=== PATIENT | female | born 1985 | race Caucasian/White ===

== ENCOUNTER 2019-10-03 13:27 | Inpatient (IN) | payer OTHER ==
[~2019-10-03] VITALS: Ht 165.1 cm; Wt 69.4 kg
--- NOTE | 2019-10-03 13:35 | NUR ---
ED Nurse Note: Pt ambulated to ED from out of state ([place] to be seen by Dr. Swartz. Pt is AOx4, calm and cooperative. Pt report she has been diagnosed with ulcerative colitis. Pt denies pain as of now, but more of like "cramping". Placed on bed and gown.
[2019-10-03 13:51] VITALS: BP 130/91
--- NOTE | 2019-10-03 14:21 | Emergency Room Report ---
History of Present Illness General Chief Complaint: General Complaint Source: Patient Present Illness HPI 34-year-old female history of colon resection history of ulcerative colitis, presents with obstructive-like symptoms J pouch, ongoing for the past month patient has not been able to tolerate good PO no aggravating or alleviating factors severity is moderate, intermittent patient presents for evaluation for possible surgical intervention Allergies: Coded Allergies: MESALAMINE (Verified Allergy, Unknown, 10/03/19) MORPHINE (Verified Allergy, Unknown, 10/03/19) COVID-19 Screening Contact w/high risk pt: No Recent Travel to affected area: No Experienced COVID-19 symptoms?: No Patient History Past Medical History: see triage record Last Menstrual Period: a year ago Now: No : 3 Para: 3 Reviewed Nursing Documentation: PMH: Agreed; PSxH: Agreed Nursing Documentation-PMH Past Medical History: No History, Except For Hx Cardiac Problems: No - ulcerative colitis Hx Asthma: Yes Review of Systems All Other Systems: negative except mentioned in HPI Physical Exam Vital Signs Date Time Temp Pulse Resp B/P (MAP) Pulse Ox O2 Delivery O2 Flow Rate FiO2 10/03/19 13:38 98.8 90 18 130/91 (104) 97 Room Air Sp02 EP Interpretation: reviewed, normal General Appearance: well appearing, no apparent distress, alert Head: normocephalic, atraumatic Eyes: bilateral eye PERRL, bilateral eye EOMI ENT: uvula midline, moist mucus membranes Neck: supple, thyroid normal, supple/symm/no masses Respiratory: lungs clear, no respiratory distress, no retraction, no accessory muscle use Cardiovascular #1: normal peripheral pulses, regular rate, rhythm, no edema, no gallop, no murmur Gastrointestinal: non tender, soft, no guarding, no rebound Musculoskeletal: normal inspection Neurologic: alert, oriented x3 Psychiatric: mood/affect normal Skin: no rash, warm/dry Medical Decision Making Diagnostic Impression: Primary Impression: Other complications of intestinal pouch ER Course 34-year-old female presents with obstructive symptoms, patient will be admitted to Dr. Swartz for management of her pouch. Laboratory Tests Test 10/03/19 14:00 White Blood Count 7.7 K/UL (4.8-10.8) Red Blood Count 4.44 M/UL (4.20-5.40) Hemoglobin 13.0 G/DL (12.0-16.0) Hematocrit 38.3 % (37.0-47.0) Mean Corpuscular Volume 86 FL (80-99) Mean Corpuscular Hemoglobin 29.2 PG (27.0-31.0) Mean Corpuscular Hemoglobin Concent 33.8 G/DL (32.0-36.0) Red Cell Distribution Width 11.8 % (11.6-14.8) Platelet Count 361 K/UL (150-450) Mean Platelet Volume 5.2 FL (6.5-10.1) L Neutrophils (%) (Auto) 60.7 % (45.0-75.0) Lymphocytes (%) (Auto) 25.6 % (20.0-45.0) Monocytes (%) (Auto) 11.2 % (1.0-10.0) H Eosinophils (%) (Auto) 0.7 % (0.0-3.0) Basophils (%) (Auto) 1.8 % (0.0-2.0) Urine Color Pale yellow Urine Appearance Clear Urine pH 5 (4.5-8.0) Urine Specific [place] 1.015 (1.005-1.035) Urine Protein Negative (NEGATIVE) Urine Glucose (UA) Negative (NEGATIVE) Urine Ketones Negative (NEGATIVE) Urine Blood 1+ (NEGATIVE) H Urine Nitrite Negative (NEGATIVE) Urine Bilirubin Negative (NEGATIVE) Urine Urobilinogen Normal MG/DL (0.0-1.0) Urine Leukocyte Esterase Negative (NEGATIVE) Urine RBC 0-2 /HPF (0 - 2) Urine WBC 0 /HPF (0 - 2) Urine Squamous Epithelial Cells Few /LPF (NONE/OCC) Urine Bacteria Occasional /HPF (NONE) Urine HCG, Qualitative Negative (NEGATIVE) Sodium Level 143 MMOL/L (136-145) Potassium Level 4.2 MMOL/L (3.5-5.1) Chloride Level 106 MMOL/L (98-107) Carbon Dioxide Level 28 MMOL/L (21-32) Anion Gap 9 mmol/L (5-15) Blood Urea Nitrogen 9 mg/dL (7-18) Creatinine 0.9 MG/DL (0.55-1.30) Estimated Glomerular Filtration Rate > 60 mL/min (>60) Glucose Level 86 MG/DL (74-106) Calcium Level 9.0 MG/DL (8.5-10.1) Total Bilirubin 0.5 MG/DL (0.2-1.0) Aspartate Amino Transferase (AST) 19 U/L (15-37) Alanine Aminotransferase (ALT) 24 U/L (12-78) Alkaline Phosphatase 32 U/L (46-116) L Total Protein 7.2 G/DL (6.4-8.2) Albumin 4.0 G/DL (3.4-5.0) Globulin 3.2 g/dL Albumin/Globulin Ratio 1.3 (1.0-2.7) Lipase 139 U/L (73-393) Last Vital Signs Date Time Temp Pulse Resp B/P (MAP) Pulse Ox O2 Delivery O2 Flow Rate FiO2 10/03/19 13:51 90 18 Room Air 10/03/19 13:51 98.8 130/91 97 Disposition: ADMITTED INPATIENT Condition: Stable Trevor Judd MD October 03, 2019 14:21
[2019-10-03 14:39] LABS: BASOPHILS % (AUTO) 1.8 % (0.0-2.0); EOSINOPHILS % (AUTO) 0.7 % (0.0-3.0); HEMATOCRIT 38.3 % (37.0-47.0); LYMPHOCYTES % (AUTO) 25.6 % (20.0-45.0); MEAN CORPUSCULAR VOLUME 86 FL (80-99); MONOCYTES % (AUTO) 11.2 % (1.0-10.0); NEUTROPHILS % (AUTO) 60.7 % (45.0-75.0); PLATELET COUNT 361 K/UL (150-450); RED BLOOD COUNT 4.44 M/UL (4.20-5.40); RED CELL DISTRIBUTION WIDTH 11.8 % (11.6-14.8); WHITE BLOOD COUNT 7.7 K/UL (4.8-10.8)
[2019-10-03 14:42] LABS: APPEARANCE,URINE CLEAR; BILIRUBIN, URINE NEGATIVE (NEGATIVE); GLUCOSE, URINE (UA) NEGATIVE (NEGATIVE); NITRITE,URINE NEGATIVE (NEGATIVE); PH,URINE 5 (4.5-8.0); PROTEIN,URINE NEGATIVE (NEGATIVE); UROBILINOGEN,URINE NORMAL MG/DL (0.0-1.0)
[2019-10-03 14:45] LABS: COLOR,URINE PALE YELLOW; KETONES,URINE NEGATIVE (NEGATIVE); LEUKOCYTE ESTERASE ,URINE NEGATIVE (NEGATIVE)
[2019-10-03 14:57] LABS: ANION GAP 9 mmol/L (5-15); BLOOD UREA NITROGEN 9 mg/dL (7-18); CARBON DIOXIDE 28 MMOL/L (21-32); CHLORIDE 106 MMOL/L (98-107); CREATININE 0.9 MG/DL (0.55-1.30); POTASSIUM 4.2 MMOL/L (3.5-5.1); SODIUM 143 MMOL/L (136-145)
--- NOTE | 2019-10-03 14:59 | General Progress Note ---
Progress Note Progress Note H&P dictated. 34 year old female in good health one year post-op creation of a Mcdowell Continent Intestinal [place] continent ileostomy in [place], for a diagnosis of Ulcerative Colitis and prior colectomy with failed ileoanal J pouch. for several months she has been having progressively severe difficulty inserting her drainage catheter to evacuate stool and gas. She has tried an indwelling catheter but it keeps coming out. She has also been having frequent repeated episodes of pouchitis, treated with Cipro, Flagyl, and Xifaxan in the past. She last intubated 12 hours ago. She has not had any incontinence of stool or gas from her stoma. She denies nausea or emesis, but feels bloated Abdomen soft, slight distention, mildly tympanitic. Pfannenstiel incision ( used for all her operations), stoma of the Mcdowell pouch is very low near the pubic tubercle in the RLQ, and has a very small orifice. Imp: Malfunctioning Mcdowell Continent Ileostomy with inability to intubate and functional small bowel obstruction History of Ulcerative Colitis S/P multiple operations including colectomy with ileoanal J pouch in 1999 , and in September 2018 APR, resection of J pouch, creation of Mcdowell continent ileostomy pouch Plan: NPO, IV fluids Insertion of a catheter into Mcdowell pouch now and connect to continuous gravity drainage Mcdowell pouch endoscopy tomorrow Elijah Swartz MD October 03, 2019 14:59
[2019-10-03 15:01] LABS: ALANINE AMINOTRANSFERASE 24 U/L (12-78); ALBUMIN/GLOBULIN RATIO 1.3 (1.0-2.7); ALKALINE PHOSPHATASE 32 U/L (46-116); ASPARTATE AMINO TRANSFERASE 19 U/L (15-37); BILIRUBIN,TOTAL 0.5 MG/DL (0.2-1.0)
--- NOTE | 2019-10-03 15:21 | NUR ---
ED Nurse Note: report given to AMBROSIO Lee
--- NOTE | 2019-10-03 15:40 | NUR ---
TRANSFER TO FLOOR: Patient transferred to med surg unit as ordered, per Dr. Swartz. Report given to primary nurse. Belongings was all sent up with pt. Family and or S/O informed of transfer.
--- NOTE | 2019-10-03 16:00 | NUR ---
NURSE NOTES: Patient arrived to unit at 1545 via gurney from ED. Patient is awake and oriented, in no apparent distress, denies pain/nausea. Oriented to room/unit. Belongings checked at bedside. 28Fr valencia catheter inserted into pouch per order without issue, placed to gravity drainage and flushed. IV intact, patent. Side rails upx2, bed low and locked, call light within reach.
[2019-10-03 16:11] VITALS: BP 119/79
[2019-10-03] MEDS ORDERED: PROTONIX40 MG ORAL (16:35)
[2019-10-03] MEDS ORDERED: LEVSIN0.125 MG ORAL (16:38)
[2019-10-03] MEDS ORDERED: PROBIOTIC1 EAC5 PO (16:38)
[2019-10-03] MEDS ORDERED: MULTIVITAMINS1 EAC2 ORAL (16:38)
[2019-10-03] MEDS ORDERED: FERROUS SULFAT325 MG ORAL (16:42)
[2019-10-03] MEDS ORDERED: VITAMIN D32400 UNIT/ PO (16:42)
--- NOTE | 2019-10-03 17:22 | NUR ---
NURSE NOTES: Called Dr. Swartz and reviewed home medications with MD. Received orders to continue patient's home medications protonix and levsin. Also received activity/DVT prophylaxis orders. All orders read back and entered.
[2019-10-03] MEDS: D5 1/2NS w/KCl 20mEq 1,000 ML IV SCH (17:26)
[2019-10-03] MEDS ORDERED: Hyoscyamine 0.125mg tab ORAL PRN (17:30)
--- NOTE | 2019-10-03 18:02 | NUR ---
NURSE NOTES: Total ileo output: +210mL Patient has not voided since arriving on unit. Patient encouraged to ambulate per order and agreed.
--- NOTE | 2019-10-03 19:17 | NUR ---
HAND-OFF: Report given to Michelle VALENTE.
--- NOTE | 2019-10-03 19:32 | NUR ---
NURSE NOTES: Received report from Rosa VALENTE. Rounding is done. Patient is a/ox4, and denied any pain or any distress. IV site is intact and patent. IV fluid is running. Dressing is c/d/i. Ileostomy bag is draining to gravity. Bed is on alarm, locked, and lowest position. Call light within reach. Will continue to monitor.
--- NOTE | 2019-10-03 19:44 | Pre-op HX & Phy Repo 2 SIG ---
DATE OF ADMISSION: 10/03/2019 Admitted from the emergency department October 03, 2019. HISTORY OF PRESENT ILLNESS: The patient is a 34-year-old female in overall stable health with a severely malfunctioning Mcdowell continent intestinal reservoir, continent ileostomy. She has been having progressively severe difficulty inserting her intubation catheter into her pouch to evacuate stool and gas. She has tried to keep her catheter in place, but it expels itself spontaneously creating a mess of stool. She is also having increasing pain inserting her 30-Bengali intubation catheter. She has tried smaller catheters without any difference. She came because of our expertise with the Mcdowell type of K[place] pouch continent ileostomy and presented to the emergency department having been unable to self-catheterize or intubate her pouch to evacuate stool for the past 12 hours. The patient also relates that she has frequent episodes of pouchitis ever since her pouch was created 1 year ago in [place]. She has taken Cipro and Flagyl and Xifaxan for her pouchitis. She underwent endoscopy of her Mcdowell pouch which she believes in [place] in May 2019, but there was no diagnosis made as to why she was having so much difficulty intubating her pouch. PAST MEDICAL HISTORY: MEDICATIONS: Protonix, Levsin p.r.n., Cipro, Flagyl or Xifaxan for pouchitis, iron and vitamin supplements. ALLERGIES: Mesalamine, morphine and Cymbalta. OPERATIONS: Please see complete list at the end of this dictation including total colectomy with ileoanal J-pouch with subsequent resection of failed J-pouch. PHYSICAL EXAMINATION: VITAL SIGNS: The patient is 5 feet 7 inches, 145 pounds. She denies nausea or vomiting, but feels bloated and uncomfortable, having been unable to intubate for 12 hours. She is afebrile with stable vital signs. HEENT: Within normal limits. LUNGS: Clear. HEART: Regular rhythm. BREASTS: Without masses. ABDOMEN: Soft and mildly distended and mildly tympanitic, but nontender. There is a Pfannenstiel scar, which was used for all of her operations. There is no evidence of abdominal wall hernia of the stoma of her Mcdowell continent ileostomy pouch, is inferior to the Pfannenstiel scar in the pubic tubercle quite low and is very small orifice. Pelvic performed recently by her primary care. RECTAL: Status post proctectomy. EXTREMITIES: Without edema. NEUROLOGIC: Physiologic. IMPRESSION: 1. 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 2. History of ulcerative colitis. 3. Frequent pouchitis. 4. Status post multiple abdominal operations. 4.1. Proctocolectomy with ileoanal J-pouch in October 2001. 4.2. sections in 2007 and 2012 and 2016. 4.3. Abdomino-perineal proctectomy and resection of failed ileoanal J-pouch with creation of Mcdowell continent ileostomy. 4.4. (All these operations were done in other states). PLAN: The patient will be n.p.o. with intravenous fluids and any lab abnormalities corrected. A catheter will be inserted into her continent ileostomy Mcdowell pouch and connected to continuous gravity drainage. She will be prepared to undergo a Mcdowell pouch endoscopy followed by surgical revision as indicated by the findings. Elijah Swartz M.D. DR: Carissa JOB#: [id number] CC:
[2019-10-03 20:00] VITALS: BP 119/61
[2019-10-03] MEDS: Zolpidem 5mg tab ORAL PRN (21:30)
[2019-10-04] VITALS: BP 107/70
[2019-10-04] MEDS: D5 1/2NS w/KCl 20mEq 1,000 ML IV SCH ×2 (02:48→15:00)
[2019-10-04 04:00] VITALS: BP 115/57
[2019-10-04 07:22] LABS: BASOPHILS % (AUTO) 1.4 % (0.0-2.0); EOSINOPHILS % (AUTO) 1.9 % (0.0-3.0); HEMATOCRIT 35.1 % (37.0-47.0); HEMOGLOBIN 12.1 G/DL (12.0-16.0); LYMPHOCYTES % (AUTO) 33.5 % (20.0-45.0); MEAN CORPUSCULAR VOLUME 85 FL (80-99); MONOCYTES % (AUTO) 12.5 % (1.0-10.0); NEUTROPHILS % (AUTO) 50.7 % (45.0-75.0); PLATELET COUNT 318 K/UL (150-450); RED BLOOD COUNT 4.12 M/UL (4.20-5.40); RED CELL DISTRIBUTION WIDTH 12.1 % (11.6-14.8); WHITE BLOOD COUNT 4.7 K/UL (4.8-10.8)
[2019-10-04 07:31] LABS: ALANINE AMINOTRANSFERASE 20 U/L (12-78); ALBUMIN 3.4 G/DL (3.4-5.0); ALBUMIN/GLOBULIN RATIO 1.3 (1.0-2.7); ALKALINE PHOSPHATASE 30 U/L (46-116); ANION GAP 6 mmol/L (5-15); ASPARTATE AMINO TRANSFERASE 15 U/L (15-37); BILIRUBIN,TOTAL 0.6 MG/DL (0.2-1.0); BLOOD UREA NITROGEN 7 mg/dL (7-18); CALCIUM 8.4 MG/DL (8.5-10.1); CARBON DIOXIDE 28 MMOL/L (21-32); CHLORIDE 108 MMOL/L (98-107); CREATININE 0.9 MG/DL (0.55-1.30); FERRITIN 42 NG/ML (8-388); POTASSIUM 3.9 MMOL/L (3.5-5.1); SODIUM 142 MMOL/L (136-145)
--- NOTE | 2019-10-04 07:34 | NUR ---
HAND-OFF: Report given to Miroslava VALENTE. PATIENT IN STABLE CONDITION.
[2019-10-04 07:35] LABS: % IRON SATURATION 47 % (15-50); IRON 128 ug/dL (50-175); TOTAL IRON BINDING CAPACITY 271 ug/dL (250-450)
[2019-10-04 07:36] VITALS: BP 108/68
--- NOTE | 2019-10-04 07:59 | Pre-Procedure Note/Attestation ---
Pre-Procedure Note/Attestation Complete Prior to Procedure Planned Procedure: not applicable Procedure Narrative: Mcdowell Pouch endoscopy Indications for Procedure Pre-Operative Diagnosis: Malfunctioning Mcdowell Continent Ileostomy with inability to intubate Attestation I attest that I discussed the nature of the procedure; its benefits; risks and complications; and alternatives (and the risks and benefits of such alternatives ), prior to the procedure, with the patient (or the patient's legal claims customer service representative). I attest that, if there was a reasonable possibility of needing a blood transfusion, the patient (or the patient's legal claims customer service representative) was given the [facility] standardized written summary, pursuant to the [place] Blood Safety Act ([place] Health and Safety Code # 1645, as amended). I attest that I re-evaluated the patient just prior to the surgery and that there has been no change in the patient's H&P, except as documented below:none Elijah Swartz MD October 04, 2019 07:59
--- NOTE | 2019-10-04 08:00 | NUR ---
NURSE NOTES: Received report Michelle VALENTE, pt a/a/o x4 laying in bed with no signs of distress or other issues at this time. Ileostomy bag draining to gravity, total night patrol inspector output: 170ml, total urine out put: 300ml. IV on the right AC gauge #20 running D5 1/2NS @100ml/hr. pt is able to ambulate around the unit with steady gait. call light within reach, bed in lowest position. side rales up x2. I will f/u as needed.
--- NOTE | 2019-10-04 08:30 | General Progress Note ---
Progress Note Progress Note AVSS Comfortable overnight with Mcdowell Pouch catheter to continuous drainage Abdomen soft, flat, non-tender Urine 700cc since admitted late yesterday afternoon BCIR ileo 380 WBC low 4700 Hgb 12.1 BUN 7 Cr 0.9 albumin 3/4 Iron 128 Ferritin 42 B12 and folic acid wnl Imp: Malfunctioning Mcdowell continent ileostomy with inability to intubate Plan: Mcdowell pouch endoscopy today npo, IV fluids continuous drainage of Mcdowell pouch Elijah Swartz MD October 04, 2019 08:30
--- NOTE | 2019-10-04 10:07 | NUR ---
*-* NO INSURANCE INFORMATION IN THE BAR UNABLE TO SEND CLINICAL OR REVIEWS *-*
--- NOTE | 2019-10-04 10:36 | NUR ---
*-* INSURANCE *-* ALL AVAILABLE CLINICALS HAVE BEEN FAXED TO: [facility] MICHAELM:ALONSO FERNANDEZ REF# [id number] [: [phone] F: [phone]
[2019-10-04] MEDS ORDERED: Lidocaine 1% Plain 30 ml INJ SCH (11:00)
[2019-10-04] MEDS ORDERED: Heparin1,000 units/500ml Premix(Conc:2 units/ml) IV SCH (11:00)
--- NOTE | 2019-10-04 12:15 | Brief Operative Note ---
Immediate Post Operative Note Operative Note Pre-op Diagnosis: Malfunctioning Mcdowell Continent Ileostomy with inability to intubate Procedure: Mcdowell pouch endoscopy Post-op Diagnosis: Angulation and redundancy of access segment Post-op Diagnosis: same as pre-op Findings: consistent w/pre-op dx studies Surgeon: radha Anesthesia: other - none Specimen: none Complications: none Condition: stable Fluids: none Estimated Blood Loss: none Drains: other - 28 Chamorro to Mcdowell Pouch Implant(s) used?: No Elijah Swartz MD October 04, 2019 12:15
--- NOTE | 2019-10-04 14:59 | Pre-Procedure Note/Attestation ---
Pre-Procedure Note/Attestation Complete Prior to Procedure Planned Procedure: not applicable Procedure Narrative: PICC line placement Indications for Procedure Pre-Operative Diagnosis: Need IV access Attestation I attest that I discussed the nature of the procedure; its benefits; risks and complications; and alternatives (and the risks and benefits of such alternatives ), prior to the procedure, with the patient (or the patient's legal sales representative raw fibers). I attest that I re-evaluated the patient just prior to the surgery and that there has been no change in the patient's H&P, except as documented below: John Bell M.D. October 04, 2019 14:59
--- NOTE | 2019-10-04 15:48 | NUR ---
CASE MANAGEMENT: INITIAL REVIEW 34YR OLD FEMALE FROM [place] HERE FOR ELECTIVE SURGERY CC: GENERAL COMPLAINT; ULCER COLITIS SI: INTRACTABLE ABDOMINAL PAIN , POUCH MALFUNCTION 98.7 90 18 130/91 97% ON RA ALKP 32 IS: IV D5@ 100ML/HR IV ZOFRAN Q4HR/PRN \: 3E MED SURG UNIT DCP: HOME WHEN STABLE PLAN: ENDOSCOPY IN AM PICC LINE PLACEMENT FOR HALFWAY USES CASE MANAGEMENT: REVIEW 10/04/19 SI: INTRACTABLE ABDOMINAL PAIN , POUCH MALFUNCTION 97.5 71 20 108/68 98% ON RA ALKP 30 WBC 4.7 IS: IN SURGERY NOW ENDOSCOPY OF BOWEL POUCH IV D5@ 100ML/HR PROTONIX PO QD FIORICET PO X1 \: 3E MED SURG UNIT DCP: HOME WHEN STABLE PLAN: PICC LINE PLACEMENT FOR CERTIFIED FRAUD EXAMINER USES CLEAR LIQ DIET
[2019-10-04 16:00] VITALS: BP 114/79
--- NOTE | 2019-10-04 16:00 | Diagnostic Imaging Report ---
Indications: Needs long-term IV access Technique: Ultrasound confirms patent compressible left brachial vein. Total sterile technique, including sterile probe cover and sterile gel, hat, mask,, sterile gown, large sterile drape, and preparation with 2% chlorhexidine utilized. Local anesthesia with 1% lidocaine. Under real-time ultrasound guidance, puncture left brachial vein using 21-gauge needle, documented and archived, passage 0.018 guidewire under direct fluoroscopy, which was used to determine appropriate catheter length, exchange for 4.5 Guinean peel-away sheath. 4French dual-lumen power PICC cut to 43 cm. It was inserted through the peel-away sheath. Peel-away sheath and guidewire removed. Catheter fixed to the skin. Both catheter ports aspirated and flushed. Patient tolerated procedure well, without immediate complication. Digital radiograph documents satisfactory catheter tip position, at the cavoatrial junction. Patient tolerated the procedure well without immediate complications. Total procedure time 15 minutes. Total fluoroscopy time 18.2 seconds. Total fluoroscopy dose 1.37 mGy. Impression: Successful placement of 4 Guinean double-lumen PICC under sonographic and fluoroscopic guidance, as described above.
--- NOTE | 2019-10-04 19:38 | NUR ---
NURSE NOTES: Received report from AMBROSIO [place]. AAO x 4, resting in bed, on room air, ambulatory. No c/o pain. Ileo attached to the drainage bag. Ileo output from AM shift 390cc, urine output 1000cc. PICC line and IV intact running IVF. Bed locked, lowest position, side rails up, alarm on, call light within reach. Will continue to monitor.
[2019-10-04 20:00] VITALS: BP 105/61
--- NOTE | 2019-10-04 20:18 | NUR ---
HAND-OFF: Report given to Celina VALENTE, pt in stable condition. During my shift: - Picc line placed on the left upper arm double lumen - Pouch endoscopy - pt was able to ambulate the unit with steady gait. - no complains of n/v. I&O's Ileostomy: 450-86=608aq Urine: 1000ml intake: 886ml
[2019-10-04] MEDS: Dyna-Hex 2% Top Sol 2oz TOPIC SCH (20:52)
--- NOTE | 2019-10-04 21:00 | Procedure Note ---
DATE OF PROCEDURE: 10/04/2019 ENDOSCOPY PROCEDURE REPORT ENDOSCOPIST: Elijah Swartz MD. ANESTHESIA: None. SEDATION: None. PRE-ENDOSCOPY DIAGNOSES: 1. 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 2. History of ulcerative colitis. 3. Status post multiple abdominal operations including total colectomy with ileoanal J-pouch in 2001 followed by resection of failed J-pouch proctectomy and creation of Mcdowell continent ileostomy in September 2018. POST-ENDOSCOPY DIAGNOSES: 1. 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 2. History of ulcerative colitis. 3. Status post multiple abdominal operations including total colectomy with ileoanal J-pouch in 2001 followed by resection of failed J-pouch proctectomy and creation of Mcdowell continent ileostomy in September 2018. ENDOSCOPY PERFORMED: Mcdowell continent ileostomy and pouch endoscopy. DESCRIPTION OF PROCEDURE: The patient was positioned supine in the GI lab without any anesthesia or sedation given or required. Using a GIF-P140 endoscope, the stoma, which was very low within the right lower quadrant near the pubic tubercle was entered. There was redundancy of the access segment with the distance to the tip of the nipple valve approximately 10 cm, which in this patient should be 7 cm she is very thin. There was angulation of the access segment approximately 3 cm deep to the mucocutaneous junction. The pouch was readily entered and distensible. The pouch mucosa is completely normal without any inflammation or ulcerations. Retroflexed views revealed a very well formed circumferentially stable nipple valve. Withdrawal views confirmed the above findings. After removing the endoscope, I was able to insert a 28-Malay Chamorro catheter into the pouch, connected to gravity drainage bag, and covered with a dressing over the stoma. The patient will require surgery involving revision of her Mcdowell pouch stoma in depth. She tolerated the endoscopy well. Elijah Swartz M.D. DR: PRASAD JOB#: [id number] CC:
--- NOTE | 2019-10-04 22:30 | NUR ---
NURSE NOTES: Received report & pt from AMBROSIO Boat[place] for continuation of care. A&ox4, in room air, in no acute distress & no pain. Ileo cath intact & draining to gravity. Drsg intact. PICC line with IVF running as ordered. Plan of care discussed.
--- NOTE | 2019-10-04 22:33 | NUR ---
HAND-OFF: Report given to AMBROSIO Akins.
[2019-10-05] VITALS: BP 112/68
[2019-10-05 04:00] VITALS: BP 110/61
[2019-10-05 05:43] LABS: BASOPHILS % (AUTO) 1.3 % (0.0-2.0); EOSINOPHILS % (AUTO) 1.2 % (0.0-3.0); HEMATOCRIT 34.3 % (37.0-47.0); HEMOGLOBIN 11.8 G/DL (12.0-16.0); LYMPHOCYTES % (AUTO) 25.8 % (20.0-45.0); MEAN CORPUSCULAR VOLUME 86 FL (80-99); MONOCYTES % (AUTO) 10.8 % (1.0-10.0); PLATELET COUNT 291 K/UL (150-450); RED BLOOD COUNT 4.01 M/UL (4.20-5.40); RED CELL DISTRIBUTION WIDTH 11.9 % (11.6-14.8); WHITE BLOOD COUNT 6.1 K/UL (4.8-10.8)
[2019-10-05 06:06] LABS: ANION GAP 4 mmol/L (5-15); BLOOD UREA NITROGEN 4 mg/dL (7-18); CALCIUM 8.2 MG/DL (8.5-10.1); CARBON DIOXIDE 28 MMOL/L (21-32); CHLORIDE 109 MMOL/L (98-107); CREATININE 0.8 MG/DL (0.55-1.30); POTASSIUM 3.9 MMOL/L (3.5-5.1); SODIUM 141 MMOL/L (136-145)
--- NOTE | 2019-10-05 07:11 | General Progress Note ---
Progress Note Progress Note AVSS Doing well with Mcdowell Pouch catheter draining well Abdomen soft labs satisf. Imp: Stable Plan; Bowel prep today surgery tomorrow revision Mcdowell Pouch stoma in depth Elijah Swartz MD October 05, 2019 07:11
--- NOTE | 2019-10-05 07:27 | NUR ---
NURSE NOTES:bedside rounds with night rn(elda),pt.in good spirit,no co pain.room air,abdomen soft,non distended.ileo with brownish effluent.yaneli picc line patent.will continue current plan of care.
--- NOTE | 2019-10-05 07:27 | NUR ---
HAND-OFF: Report given to AMBROSIO Gamez. Pt in stable condition.
[2019-10-05 08:00] VITALS: BP 116/68
[2019-10-05] MEDS: D5 1/2NS w/KCl 20mEq 1,000 ML IV SCH (08:20)
--- NOTE | 2019-10-05 08:49 | Anethesia Preoperative Eval ---
Anesthesia Pre-op PMH/ROS General Date of Evaluation: October 05, 2019 Time of Evaluation: 06:31 Anesthesiologist: Griselda ASA Score: ASA 2 Mallampati Score Class I : Soft palate, uvula, fauces, pillars visible Class II: Soft palate, uvula, fauces visible Class III: Soft palate, base of uvula visible Class IV: Only hard plate visible Mallampati Classification: Class I Surgeon: Sheridan Diagnosis: Malfunctining Mcdowell Pouch Stoma Surgical Procedure: Revision Of Mcdowell Pouch Stoma Anesthesia History: none Family History: no anesthesia problems Allergies: Coded Allergies: MESALAMINE (Verified Allergy, Unknown, 10/03/19) MORPHINE (Verified Allergy, Unknown, 10/03/19) Medications: see eMAR Patient NPO?: Yes Past Medical History Pulmonary: Reports: asthma Gastrointestinal/Genitourinary: Reports: other - Ulcerative Colitis Hematology/Immune: Reports: anemia PSxH Narrative: 1. 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 2. History of ulcerative colitis. 3. Frequent pouchitis. 4. Status post multiple abdominal operations. 4.1. Proctocolectomy with ileoanal J-pouch in October 2001. 4.2. sections in 2007 and 2012 and 2016. 4.3. Abdomino-perineal proctectomy and resection of failed ileoanal J-pouch with creation of Mcdowell continent ileostomy. 4.4. (All these operations were done in other states). Anesthesia Pre-op Phys. Exam Physician Exam Last Vital Signs Date Time Temp Pulse Resp B/P (MAP) Pulse Ox O2 Delivery O2 Flow Rate FiO2 10/05/19 08:00 98.3 68 18 116/68 (84) 100 10/05/19 07:27 Room Air Constitutional: NAD Neurologic: CN 2-12 intact Cardiovascular: RRR Respiratory: CTA Gastrointestinal: S/NT/ND Airway Exam Mallampati Score: Class I MO: full ROM: full Teeth: intact Anesthesia Pre-op A/P Labs Hematology Test 10/05/19 05:00 White Blood Count 6.1 K/UL (4.8-10.8) Red Blood Count 4.01 M/UL (4.20-5.40) L Hemoglobin 11.8 G/DL (12.0-16.0) L Hematocrit 34.3 % (37.0-47.0) L Mean Corpuscular Volume 86 FL (80-99) Mean Corpuscular Hemoglobin 29.4 PG (27.0-31.0) Mean Corpuscular Hemoglobin Concent 34.4 G/DL (32.0-36.0) Red Cell Distribution Width 11.9 % (11.6-14.8) Platelet Count 291 K/UL (150-450) Mean Platelet Volume 5.1 FL (6.5-10.1) L Neutrophils (%) (Auto) 61.0 % (45.0-75.0) Lymphocytes (%) (Auto) 25.8 % (20.0-45.0) Monocytes (%) (Auto) 10.8 % (1.0-10.0) H Eosinophils (%) (Auto) 1.2 % (0.0-3.0) Basophils (%) (Auto) 1.3 % (0.0-2.0) Chemistry Test 10/05/19 05:00 Sodium Level 141 MMOL/L (136-145) Potassium Level 3.9 MMOL/L (3.5-5.1) Chloride Level 109 MMOL/L (98-107) H Carbon Dioxide Level 28 MMOL/L (21-32) Anion Gap 4 mmol/L (5-15) L Blood Urea Nitrogen 4 mg/dL (7-18) L Creatinine 0.8 MG/DL (0.55-1.30) Estimat Glomerular Filtration Rate > 60 mL/min (>60) Glucose Level 84 MG/DL (74-106) Calcium Level 8.2 MG/DL (8.5-10.1) L Risk Assessment & Plan Assessment: ASA 2 Plan: GA Status Change Before Surgery: No Pre-Antibiotics Drug: Kvng Jo MD October 05, 2019 08:49
--- NOTE | 2019-10-05 11:00 | NUR ---
NURSE NOTES:ambulating in [facility],nad.
[2019-10-05] MEDS: Neomycin Sulfate 500mg Tab ORAL SCH ×3 (11:58→20:39)
[2019-10-05 12:00] VITALS: BP 109/69
--- NOTE | 2019-10-05 12:00 | NUR ---
NURSE NOTES:seen by dr. garcia and explained am surgery,pt. consented for:revision of davis pouch stoma in depth.npo post midnight.schedule oral antibiotics given.
[2019-10-05 16:00] VITALS: BP 117/84
--- NOTE | 2019-10-05 16:15 | NUR ---
NURSE NOTES:sitting in chair,tolerated oral antibiotic without nausea/vomiting.
--- NOTE | 2019-10-05 16:49 | NUR ---
*-* INSURANCE *-* ALL AVAILABLE CLINICALS HAVE BEEN FAXED TO: [facility] MICHAELM:ALONSO FERNANDEZ REF# [id number] [: [phone] F: [phone]
--- NOTE | 2019-10-05 17:03 | NUR ---
CASE MANAGEMENT: REVIEW 10/05/19 SI: S/P ENDOSCOPY OF BOWEL POUCH INTRACTABLE ABDOMINAL PAIN , POUCH MALFUNCTION 98.0 59 18 109/69 96% ON RA CA+ 8.2 H/H 11.8/34.3 IS: IV D5@ 50ML/HR PROTONIX PO QD ERYTHROMYCIN PO TID NEOMYCIN SULFATE PO TID X3 DOSES TIM-HEX 2% TP QD \: 3E MED SURG UNIT DCP: HOME WHEN STABLE PLAN: START ON AMPICILLIN IV Q6HR Bowel prep today Surgery tomorrow revision Mcdowell Pouch stoma in depth
--- NOTE | 2019-10-05 18:55 | NUR ---
NURSE NOTES:dr. garcia notified re:volume and consistency of ileo output.orders carried out.
--- NOTE | 2019-10-05 19:10 | NUR ---
HAND-OFF: Report given to oleg harrison. bedside rounds done,pt stable sitting in chair.endorsed re:collection of stool c.diff
--- NOTE | 2019-10-05 19:20 | NUR ---
NURSE NOTES: Received patient sitting on a chair, awake and verbally responsive. denies any pain or discomfort. with picc line on the left upper arm, running d5 1/2 ns @ 50. with ileostomy draining a watery output.dressing was changed today, dry and intact. no visible discharges or bleeding per timoteo, rn patient had a watery output, and dr garcia has been notified regarding the consistency and the volume; with a new order to collect stool for c diff toxin. patient made aware and understands the lab test. attended to needs. provided rest and comfort. reiterated to call and ask for assistance. call light and light button within easy reach. will continue plan of care.
[2019-10-05 20:00] VITALS: BP 114/72
[2019-10-05] MEDS: Dyna-Hex 2% Top Sol 2oz TOPIC SCH (20:39)
--- NOTE | 2019-10-05 21:00 | NUR ---
NURSE NOTES: administered medications as ordered. tolerated well. no complaints of n/v. collected stool. flushed 20 ml to the ileo. reiterated to the patient regarding the NPO status post midnight for the upcoming surgery, patient understands. send the stool specimen to the lab. charge nurse made aware.
--- NOTE | 2019-10-05 21:00 | NUR ---
NURSE NOTES: administered medications as ordered. no sob.
[2019-10-05] MEDS: Ampicillin/Sulbactam Sod 3 GM in NS 110 ML IV SCH (23:48)
[2019-10-05] MEDS: Zolpidem 5mg tab ORAL PRN (23:48)
[2019-10-06] VITALS (15 sets, daily range): BP systolic 97–116; BP diastolic 54–70
--- NOTE | 2019-10-06 01:11 | NUR ---
NURSE NOTES: Patient is sleeping comfortably on bed. not in any form of respiratory distress. patient is aware the NPO States post midnight.
[2019-10-06] MEDS: D5 1/2NS w/KCl 20mEq 1,000 ML IV SCH ×2 (02:43→08:35)
[2019-10-06] MEDS: Ampicillin/Sulbactam Sod 3 GM in NS 110 ML IV SCH ×4 (05:29→23:01)
--- NOTE | 2019-10-06 07:27 | NUR ---
HAND-OFF: Report given to jose j ferrari rn.endorsed that the patient is npo due surgery today. patient is stable and no complains of pain.
--- NOTE | 2019-10-06 07:30 | NUR ---
NURSE NOTES: Handoff received from KATHLEEN VALENTE. Patient is awake and alert, no signs of distress noted. Patient's DONIS PICC is patent and asymptomatic and running IVF as ordered. Ileostomy is patent and draining to gravity. Bed is low and locked, side rails up x2, call light is within reach. Safety measures are maintained.
--- NOTE | 2019-10-06 08:32 | Pre-Procedure Note/Attestation ---
Pre-Procedure Note/Attestation Complete Prior to Procedure Planned Procedure: not applicable Procedure Narrative: revision of Mcdowell Continent Ileostomy stoma in depth Indications for Procedure Pre-Operative Diagnosis: Malfunctioning Mcdowell Continent Ileostomy with inability to intubate Attestation I attest that I discussed the nature of the procedure; its benefits; risks and complications; and alternatives (and the risks and benefits of such alternatives ), prior to the procedure, with the patient (or the patient's legal territory sales representative). I attest that, if there was a reasonable possibility of needing a blood transfusion, the patient (or the patient's legal territory sales representative) was given the [facility] standardized written summary, pursuant to the [place]ala Jyoti Blood Safety Act ([place] Health and Safety Code # 1645, as amended). I attest that I re-evaluated the patient just prior to the surgery and that there has been no change in the patient's H&P, except as documented below:none Elijah Swartz MD October 06, 2019 08:32
--- NOTE | 2019-10-06 08:47 | NUR ---
NURSE NOTES: Patient is NPO for surgery later today, Protonix held. Verified with charge nurse STEPHY VALENTE.
--- NOTE | 2019-10-06 09:16 | General Progress Note ---
Progress Note Progress Note AVSS Feeling well but had large volume BCIR ileo output yesterday 0cc with only 1700cc po clear liquids C.diff toxin sent - negative (she has past history of C.diff infections) Urine output 2700 Abdomen soft Imp: Stable Plan; Revision of Mcdowell Pouch stoma today Elijah Swartz MD October 06, 2019 09:16
--- NOTE | 2019-10-06 09:41 | NUR ---
*-* INSURANCE *-* UPDATED CLINICALS AND REVIEWS HAVE BEEN FAXED TO: [facility] MICHAELM:ALONSO FERNANDEZ REF# [id number] [: [phone] F: [phone]
--- NOTE | 2019-10-06 11:00 | NUR ---
CASE MANAGEMENT: REVIEW 10/06/19 SI: S/P ENDOSCOPY OF BOWEL POUCH INTRACTABLE ABDOMINAL PAIN , POUCH MALFUNCTION 97.8 69 18 115/66 99% ON RA IS: IN SURGERY TODAY FOR REVISION OF AMANDA POUCH STOMA IV FLAGYL Q6HR IV AMPICILLIN Q6HR PROTONIX PO QD TIM-HEX 2% TP QD \: 3E MED SURG UNIT DCP: HOME WHEN STABLE PLAN: IN SURGERY TODAY
--- NOTE | 2019-10-06 11:19 | NUR ---
RD ASSESSMENT & RECOMMENDATIONS SEE CARE ACTIVITY FOR COMPLETE ASSESSMENT DAILY ESTIMATED NEEDS: Needs based on Surgery 69.5 25-28 kcals/kg 6916-9244 total kcals 1-2 g protein/kg 70-139 g total protein 25-30 mL/kg 5206-3356 total fluid mLs NUTRITION DIAGNOSIS: Altered GI function related to ileostomy malfunction as evidenced by pt adm w/ BCIR, inability to intubate, pending surgical revision, NPO. CURRENT DIET: Now NPO PO DIET RECOMMENDATIONS: PER MD ----- ADDITIONAL RECOMMENDATIONS: 1) Will monitor NPO status, possible TPN for ileus 2) Weekly standing weights as able
[2019-10-06] MEDS ORDERED: Bacitracin 50000 Units Vial ONE ×2 (12:55→13:30)
[2019-10-06] MEDS ORDERED: NeoSporin Gu Irrig 1ml Amp IRRIG ONE ×2 (12:55→13:30)
[2019-10-06] MEDS ORDERED: Bacitracin Oint 15gm Tube TOPIC ONE (12:55)
--- NOTE | 2019-10-06 13:10 | NUR ---
NURSE NOTES: Patient left 3E for surgery in stable condition.
[2019-10-06] MEDS ORDERED: LR 1000ml ONE (13:30)
[2019-10-06] MEDS ORDERED: Sterile Water Irrig 1000ml IRRIG ONE (13:30)
[2019-10-06] MEDS ORDERED: NS Irrig 1000ml ONE (13:30)
[2019-10-06] MEDS ORDERED: Midazolam 2mg/2ml Inj ONE (13:37)
[2019-10-06] MEDS ORDERED: fentaNYL 100 mcg/2 mL IV ONE (13:37)
[2019-10-06] MEDS ORDERED: Lidocaine 1% MPF 10mg/ml 5ml ONE (13:46)
[2019-10-06] MEDS ORDERED: LR 1000ml 1,000 ML IVLG SCH (14:39)
[2019-10-06] MEDS ORDERED: DiphenhydrAMINE 50mg/ml Inj IVP PRN (14:45)
[2019-10-06] MEDS ORDERED: Hydromorphone 0.5mg/0.5ml inj IVP PRN (14:45)
[2019-10-06] MEDS ORDERED: Metoclopramide 10mg/2ml Inj IVP PRN (14:45)
[2019-10-06] MEDS ORDERED: LORazepam 1mg tab SL PRN ×2 (15:00)
--- NOTE | 2019-10-06 15:07 | Brief Operative Note ---
Immediate Post Operative Note Operative Note Pre-op Diagnosis: Malfunctioning Mcdowell Continent Ileostomy with inability to intubate Procedure: Revision of Mcdowell Continent Ileostomy stoma in depth Post-op Diagnosis: same Post-op Diagnosis: same as pre-op Findings: consistent w/pre-op dx studies Surgeon: radha Senior Business Architect: genia Anesthesiologist: cornelio Anesthesia: general Specimen: yes - stoma and access segment Complications: none Condition: stable Fluids: see anesthesia record Estimated Blood Loss: minimal Drains: other - 28 Chamorro to Mcdowell pouch Implant(s) used?: No Elijah Swartz MD October 06, 2019 15:07
--- NOTE | 2019-10-06 15:11 | Immediate Post-Op Evaluation ---
Immediate Post-Op Evalulation Immediate Post-Op Evalulation Procedure: Revision of continent pouch stoma Date of Evaluation: October 06, 2019 Time of Evaluation: 15:10 IV Fluids: 600 Blood Products: none Estimated Blood Loss: min Urinary Output: none Blood Pressure Systolic: 115 Blood Pressure Diastolic: 62 Pulse Rate: 86 Respiratory Rate: 20 O2 Sat by Pulse Oximetry: 99 Temperature (Fahrenheit): 98.0 Pain Score (1-10): 1 Nausea: No Vomiting: No Complications none Patient Status: reacts, patent, none Hydration Status: adequate Gilbert Ziegler MD October 06, 2019 15:11
[2019-10-06] MEDS ORDERED: HYDROmorphone 1mg/ml Carpuject SUBQ PRN (15:15)
[2019-10-06] MEDS ORDERED: traMADol 50mg tab ORAL PRN (15:15)
[2019-10-06] MEDS ORDERED: Hydromorphone 0.5mg/0.5ml inj ONE (15:17)
--- NOTE | 2019-10-06 16:40 | NUR ---
NURSE NOTES: Patient arrived to 3E from surgery in stable condition, awake and alert, no signs of distress. No complaints of pain, ileostomy is patent and draining to gravity. Patient did complain of nausea, RN will medicate per MD order.
[2019-10-06] MEDS: D5 1/4NS w/KCl 20mEq 1,000 ML IV SCH (16:47)
--- NOTE | 2019-10-06 18:00 | NUR ---
NURSE NOTES: Total urine output: 600 Total ileostomy output: +340 Patient ambulated x1 in the hallways before surgery, underwent BCIR revision at 1330. Patient returned at 1630 in stable condition and reported nausea, received zofran per MD order. Patient states that she does not prefer dilaudid and will ask for tylenol or tramadol first.
--- NOTE | 2019-10-06 19:20 | NUR ---
HAND-OFF: Report given to Michelle VALENTE.
--- NOTE | 2019-10-06 19:21 | NUR ---
NURSE NOTES: Received report from Rogelio VALENTE. Rounding is done. Patient is a/ox4. Denied any pain or distress at this time. PICC is intact and patent. IV fluid is running. Dressing on abdomen is c/d/i. Ileostomy is patient and draining to gravity. Patient ambulates hallway at 1900. Bed is on alarm, locked, and lowest position. Call light within reach. Will continue to monitor.
[2019-10-06] MEDS: Dyna-Hex 2% Top Sol 2oz TOPIC SCH (20:57)
--- NOTE | 2019-10-06 21:59 | Operative Note - Dictated ---
DATE OF OPERATION: 10/06/2019 SURGEON: Elijah Swartz MD. ADDITIONAL SURGEON: Jhon Garcia MD. ANESTHESIOLOGIST: Gilbert Ziegler MD. TYPE OF ANESTHESIA: General endotracheal. PREOPERATIVE DIAGNOSES: 1. 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 2. History of ulcerative colitis. 3. STATUS POST MULTIPLE ABDOMINAL OPERATIONS: 3.1. Laparoscopic-assisted proctocolectomy with ileoanal J-pouch in October 2001. 3.2. section 2007, 2012 and 2015. 3.3. Abdomino-perineal proctectomy and resection of failed ileoanal J-pouch with creation of Mcdowell continent ileostomy September 2018 (right all of these operations were done in other [place]). POSTOPERATIVE DIAGNOSES: 1. 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 2. History of ulcerative colitis. 3. STATUS POST MULTIPLE ABDOMINAL OPERATIONS: 3.1. Laparoscopic-assisted proctocolectomy with ileoanal J-pouch in October 2001. 3.2. section 2007, 2012 and 2015. 3.3. Abdomino-perineal proctectomy and resection of failed ileoanal J-pouch with creation of Mcdowell continent ileostomy September 2018 (right all of these operations were done in other states). OPERATION PERFORMED: Revision of Mcdowell continent ileostomy stoma in depth. DESCRIPTION OF PROCEDURE: The patient was taken to the operating room and under general anesthesia with sequential compression device stockings in place, she was prepped and draped in usual fashion. The stoma was located low in the right lower quadrant near the pubic tubercle. A transversely oriented elliptical incision was made achieving hemostasis with cautery. Allis clamps were placed on the edges circumferentially dissecting down below the anterior rectus sheath circumferentially and using the Thunderbeat vessel sealing device of 4 cm of redundant access segment was elevated clearing angulations. Then, the redundancy was excised and the stoma primarily matured with continuous 2-0 chromic locking suture starting at the 3 and 9 o'clock positions. A very satisfactory stoma was achieved. The 28-American Chamorro catheter was readily placed into the pouch without any restriction. It was flushed to confirm good placement with return of enteric contents and then it was connected to gravity drainage bag. The pouch catheter was sutured in place with a 2-0 silk skin suture followed by dry sterile dressing. Final sponge and needle counts were correct. The patient tolerated the procedure well and left the operating room in good condition. Elijah Swartz M.D. DR: Tejas JOB#: [id number] CC:
[2019-10-07] VITALS: BP 91/73
[2019-10-07 04:00] VITALS: BP 98/61
[2019-10-07] MEDS: D5 1/4NS w/KCl 20mEq 1,000 ML IV SCH (05:07)
[2019-10-07] MEDS: Ampicillin/Sulbactam Sod 3 GM in NS 110 ML IV SCH ×3 (05:07→17:15)
[2019-10-07 06:49] LABS: BASOPHILS % (AUTO) 1.1 % (0.0-2.0); EOSINOPHILS % (AUTO) 2.3 % (0.0-3.0); HEMATOCRIT 30.6 % (37.0-47.0); HEMOGLOBIN 10.7 G/DL (12.0-16.0); LYMPHOCYTES % (AUTO) 23.6 % (20.0-45.0); MEAN CORPUSCULAR VOLUME 86 FL (80-99); MONOCYTES % (AUTO) 13.2 % (1.0-10.0); NEUTROPHILS % (AUTO) 59.9 % (45.0-75.0); PLATELET COUNT 244 K/UL (150-450); RED BLOOD COUNT 3.56 M/UL (4.20-5.40); RED CELL DISTRIBUTION WIDTH 11.4 % (11.6-14.8)
[2019-10-07 07:13] LABS: CHLORIDE 109 MMOL/L (98-107); POTASSIUM 3.6 MMOL/L (3.5-5.1); SODIUM 143 MMOL/L (136-145)
[2019-10-07 07:31] LABS: ANION GAP 9 mmol/L (5-15); BLOOD UREA NITROGEN 4 mg/dL (7-18); CALCIUM 8.1 MG/DL (8.5-10.1); CARBON DIOXIDE 25 MMOL/L (21-32); CREATININE 0.8 MG/DL (0.55-1.30)
--- NOTE | 2019-10-07 07:45 | NUR ---
NURSE NOTES: Received report from Michelle VALENTE. Rounding is done. Patient is a/ox4, able to make needs known. Denied any pain or distress at this time. PICC is intact and patent. IV fluid is running. Dressing on abdomen is c/d/i. Ileostomy is patient and draining to gravity. Bed is on alarm, locked, and lowest position. Call light within reach. Will continue to monitor.
--- NOTE | 2019-10-07 07:51 | NUR ---
HAND-OFF: Report given to Tab VALENTE. Patient in stable condition.
[2019-10-07 08:00] VITALS: BP 112/68
--- NOTE | 2019-10-07 09:10 | General Progress Note ---
Progress Note Progress Note AVSS Comfortable not requiring analgesics. Abdomen soft Stoma pink, mild gustavo-stomal soft tissue swelling Overnight: urine 500cc BCIR ileo 320 WBC 6000 Hgb down 10.7 Imp: Stable s/p revision of Mcdowell Pouch stoma in depth Plan; Maintain indwelling pouch catheter to continuous drainage and continue IV antibiotics BCIR diet D/C IV fluids - f/u labs in AM Elijah Swartz MD October 07, 2019 09:10
[2019-10-07] MEDS ORDERED: Ascorbic Acid 500mg tab ORAL PRN (09:15)
[2019-10-07 12:00] VITALS: BP 122/71
--- NOTE | 2019-10-07 13:34 | 48 Hour Post Anesthesia Eval ---
Post Anesthesia Evaluation Procedure: Revision of continent pouch stoma Date of Evaluation: October 07, 2019 Time of Evaluation: 13:34 Nausea: No Vomiting: No Sameer Livingston MD October 07, 2019 13:34
[2019-10-07] MEDS ORDERED: NS Irrig 1000ml ONE (14:27)
[2019-10-07] MEDS ORDERED: Tubing IV Secondary IV ONE (14:27)
[2019-10-07] MEDS ORDERED: D5 1/2NS 1000ml IV ONE (14:27)
[2019-10-07 16:00] VITALS: BP 112/66
--- NOTE | 2019-10-07 19:03 | NUR ---
HAND-OFF: Report given to AMBROSIO Miramontes.
[2019-10-07 20:00] VITALS: BP 115/71
--- NOTE | 2019-10-07 20:12 | NUR ---
NURSE NOTES: Received patient awake, alert, verbal, ambulatory, resting comfortably without complaints.
[2019-10-07] MEDS: Dyna-Hex 2% Top Sol 2oz TOPIC SCH (20:50)
[2019-10-08] MEDS: Ampicillin/Sulbactam Sod 3 GM in NS 110 ML IV SCH ×5 (00:03→23:11)
[2019-10-08 04:00] VITALS: BP_SYST 107; BP_SYST 120; BP_DIAS 64; BP_DIAS 70
[2019-10-08 05:55] LABS: BASOPHILS % (AUTO) 1.2 % (0.0-2.0); EOSINOPHILS % (AUTO) 2.3 % (0.0-3.0); HEMATOCRIT 30.6 % (37.0-47.0); HEMOGLOBIN 10.7 G/DL (12.0-16.0); LYMPHOCYTES % (AUTO) 22.5 % (20.0-45.0); MEAN CORPUSCULAR VOLUME 85 FL (80-99); MONOCYTES % (AUTO) 15.6 % (1.0-10.0); NEUTROPHILS % (AUTO) 58.5 % (45.0-75.0); PLATELET COUNT 231 K/UL (150-450); RED BLOOD COUNT 3.59 M/UL (4.20-5.40); RED CELL DISTRIBUTION WIDTH 11.7 % (11.6-14.8); WHITE BLOOD COUNT 6.4 K/UL (4.8-10.8)
[2019-10-08 06:08] LABS: ALANINE AMINOTRANSFERASE 15 U/L (12-78); ALBUMIN/GLOBULIN RATIO 1.2 (1.0-2.7); ALKALINE PHOSPHATASE 32 U/L (46-116); ANION GAP 8 mmol/L (5-15); ASPARTATE AMINO TRANSFERASE 17 U/L (15-37); BILIRUBIN,TOTAL 0.4 MG/DL (0.2-1.0); BLOOD UREA NITROGEN 7 mg/dL (7-18); CALCIUM 8.3 MG/DL (8.5-10.1); CARBON DIOXIDE 28 MMOL/L (21-32); CHLORIDE 110 MMOL/L (98-107); CREATININE 0.8 MG/DL (0.55-1.30); POTASSIUM 3.7 MMOL/L (3.5-5.1); SODIUM 145 MMOL/L (136-145)
--- NOTE | 2019-10-08 07:42 | NUR ---
HAND-OFF: Report given to Leyla Barth RN.
--- NOTE | 2019-10-08 07:45 | NUR ---
NURSE NOTES: Received report from AMBROSIO Cedillo. Rounding is done. Patient is a/ox4, able to make needs known. Denied any pain or distress at this time. PICC is intact and patent. Dressing on abdomen is c/d/i. Ileostomy is patient and draining to gravity. Bed is on alarm, locked, and lowest position. Call light within reach. Will continue to monitor.
[2019-10-08 08:00] VITALS: BP 129/72
[2019-10-08] MEDS ORDERED: Zolpidem 5mg tab ORAL PRN (08:35)
--- NOTE | 2019-10-08 08:41 | General Progress Note ---
Progress Note Progress Note AVSS No significant pain. Indwelling Mcdowell Pouch catheter draining well Stoma healing, moderate peristomal swelling/edema Urine 2400 BCIR ileo 1110 Hgb down 10.7 (? dilutional) Imp: Stable Plan; Continue IV antibiotics and continuous drainage of BCIR pouch f/u labs with f/u iron level Elijah Swartz MD October 08, 2019 08:41
[2019-10-08 12:00] VITALS: BP 123/78
[2019-10-08 16:00] VITALS: BP 124/76
--- NOTE | 2019-10-08 19:30 | NUR ---
NURSE NOTES: Received report from Tab VALENTE. Rounding is done. Patient is a/ox4. Denied any pain or distress at this time. PICC is intact and patent. Dressing on abdomen is c/d/i. Ileostomy is patient and draining to gravity. Patient ambulates hallway at 1920. Bed is on alarm, locked, and lowest position. Call light within reach. Will continue to monitor.
--- NOTE | 2019-10-08 19:41 | NUR ---
HAND-OFF: Report given to AMBROSIO Martinez.
[2019-10-08 20:00] VITALS: BP 114/74
[2019-10-08] MEDS: Dyna-Hex 2% Top Sol 2oz TOPIC SCH (20:17)
[2019-10-09] VITALS: BP 95/64
[2019-10-09 04:00] VITALS: BP 121/72
[2019-10-09] MEDS: Ampicillin/Sulbactam Sod 3 GM in NS 110 ML IV SCH ×4 (05:00→23:31)
[2019-10-09 07:04] LABS: BASOPHILS % (AUTO) 1.3 % (0.0-2.0); EOSINOPHILS % (AUTO) 2.8 % (0.0-3.0); HEMATOCRIT 31.4 % (37.0-47.0); HEMOGLOBIN 10.9 G/DL (12.0-16.0); LYMPHOCYTES % (AUTO) 24.9 % (20.0-45.0); MEAN CORPUSCULAR VOLUME 85 FL (80-99); MONOCYTES % (AUTO) 14.2 % (1.0-10.0); NEUTROPHILS % (AUTO) 56.8 % (45.0-75.0); PLATELET COUNT 252 K/UL (150-450); RED BLOOD COUNT 3.72 M/UL (4.20-5.40); RED CELL DISTRIBUTION WIDTH 11.7 % (11.6-14.8); WHITE BLOOD COUNT 6.2 K/UL (4.8-10.8)
[2019-10-09 07:18] LABS: ANION GAP 9 mmol/L (5-15); BLOOD UREA NITROGEN 4 mg/dL (7-18); CALCIUM 8.3 MG/DL (8.5-10.1); CARBON DIOXIDE 25 MMOL/L (21-32); CHLORIDE 110 MMOL/L (98-107); CREATININE 0.8 MG/DL (0.55-1.30); POTASSIUM 3.7 MMOL/L (3.5-5.1); SODIUM 144 MMOL/L (136-145)
[2019-10-09 07:36] LABS: IRON 21 ug/dL (50-175)
--- NOTE | 2019-10-09 07:49 | NUR ---
HAND-OFF: Report given to Lizet VALENTE. Patient in stable condition.
[2019-10-09 08:00] VITALS: BP 140/95
[2019-10-09] MEDS ORDERED: Cathflo Alteplase 2mg Inj INJ ONE (08:00)
--- NOTE | 2019-10-09 08:01 | NUR ---
RD ASSESSMENT & RECOMMENDATIONS SEE CARE ACTIVITY FOR COMPLETE ASSESSMENT DAILY ESTIMATED NEEDS: Needs based on Surgery 69.5 25-28 kcals/kg 9649-3425 total kcals 1-2 g protein/kg 70-139 g total protein 25-30 mL/kg 5767-0379 total fluid mLs NUTRITION DIAGNOSIS: Altered GI function related to ileostomy malfunction as evidenced by pt adm w/ BCIR, inability to intubate, s/p revision of Mcdowell continent ileostomy stoma, diet advanced to BCIR low residue diet. CURRENT DIET:BCIR LOW RESIDUE DIET PO DIET RECOMMENDATIONS: BCIR LOW RESIDUE DIET ADDITIONAL RECOMMENDATIONS: 1) Monitor PO intake and tolerance -> monitor for continued good PO intake and tolerance 2) Weekly standing weights as able
--- NOTE | 2019-10-09 08:15 | NUR ---
NURSE NOTES: Patient is in her chair. Stable. Denies pain or SOB. Patient updated on plan of care. Ileo to drainage bag as ordered. Received report that PICC is occluded, new order for cathflo noted, will administer as ordered. Patient instructed to use call light for assistance, verbalized understanding. All needs met at this time. Will continue to monitor.
--- NOTE | 2019-10-09 08:55 | General Progress Note ---
Progress Note Progress Note Doing well, tolerating BCIR diet. Abdomen soft, Stoma healing nicely Urine 1800 BCIR ileo 950 Imp: Improving Plan: Continue IV antibiotics and indwelling Mcdowell pouch catheter to continuous drainage Start RN supervised BCIR self-intubation is AM if stable Elijah Swartz MD October 09, 2019 08:55
--- NOTE | 2019-10-09 09:00 | NUR ---
NURSE NOTES: Cathflo given at 08:22 as ordered and aspirated 30 min after. PICC both lumens patent and flushed with 10cc NS.
[2019-10-09 12:00] VITALS: BP 117/77
[2019-10-09 16:00] VITALS: BP 114/70
--- NOTE | 2019-10-09 16:18 | NUR ---
*-* INSURANCE *-* UPDATED CLINICALS AND REVIEWS HAVE BEEN FAXED TO: [facility] MICHAELM:ALONSO FERNANDEZ REF# [id number] [: [phone] F: [phone]
--- NOTE | 2019-10-09 18:00 | NUR ---
NURSE NOTES: NURSE NOTES: Surgical dressing soiled, changed by RN. Tolerated well.
--- NOTE | 2019-10-09 18:43 | NUR ---
NURSE NOTES: True ileo: 895cc brown liquid output. UO: 1200 shawn urine output. No c/o nausea or vomiting or pain during shift. Patient ambulated throughout shift independently.
--- NOTE | 2019-10-09 19:20 | NUR ---
HAND-OFF: Report given to Michelle VALENTE. Patient is stable. Plan of care endorsed to next shift.
--- NOTE | 2019-10-09 19:21 | NUR ---
NURSE NOTES: Received report from Florencia VALENTE. Rounding is done. Patient is a/ox4. Denied any pain or distress at this time. PICC is intact and patent. Dressing on abdomen is c/d/i. Ileostomy is patient and draining to gravity. Patient ambulates hallway at 1915. Bed is on alarm, locked, and lowest position. Call light within reach. Will continue to monitor.
[2019-10-09 20:00] VITALS: BP 118/72
[2019-10-09] MEDS: Dyna-Hex 2% Top Sol 2oz TOPIC SCH (20:30)
[2019-10-10] VITALS: BP 115/71
[2019-10-10 04:00] VITALS: BP 94/55
[2019-10-10] MEDS: Ampicillin/Sulbactam Sod 3 GM in NS 110 ML IV SCH ×4 (05:04→23:05)
[2019-10-10 07:48] VITALS: BP 119/73
--- NOTE | 2019-10-10 07:55 | NUR ---
NURSE NOTES:BEDSIDE ROUNDS WITH NIGHT RN(SONU),PT.EATING BREAKFAST,IN GOOD SPIRIT,ILEO WITH GOOD EFFLUENT,ABDOMEN NON DISTENDED,PIC LINE X2 PORTS PATENT.NO C/O PAIN.
--- NOTE | 2019-10-10 09:00 | NUR ---
NURSE NOTES:ILEO CATH. REMOVED,TO START SELF INTUBATION AT 1200.
[2019-10-10 11:27] VITALS: BP 121/73
--- NOTE | 2019-10-10 11:27 | NUR ---
*-* INSURANCE *-* UPDATED CLINICALS AND REVIEWS HAVE BEEN FAXED TO: [facility] MICHAELM:ALONSO FERNANDEZ REF# [id number] [: [phone] F: [phone]
--- NOTE | 2019-10-10 12:00 | NUR ---
NURSE NOTES:SELF INTUBATION WITH RN. SUPERVISION USING FR.30 CROSS,TOLERATED WELL WITH 150CC OUTPUT OF BROWN STOOL.STOMA REDDISH.
[2019-10-10] MEDS ORDERED: Tubing IV Secondary IV ONE (13:23)
--- NOTE | 2019-10-10 14:31 | General Progress Note ---
Progress Note Progress Note Doing well. BCIR Mcdowell pouch ileo catheter removed earlier this AM. She has intubated with ease using her 30 Fr Medena catheter Stoma still mild edema and peristomal swelling, healing nicely Imp: Doing well Plan: discharge early AM 0345 Full instructions/supplies/limitations discussed/provided F/U office 10/16 Intubate BCIR as needed Continue BCIR diet Elijah Swartz MD October 10, 2019 14:31
--- NOTE | 2019-10-10 15:00 | NUR ---
NURSE NOTES:seen by dr. garciad/c for tomorrow.supplies given.self intubation done with 200 cc output.
[2019-10-10 15:25] VITALS: BP 114/81
--- NOTE | 2019-10-10 19:49 | NUR ---
HAND-OFF: Report given to CLARICE VALENTE.PT.STABLE..
--- NOTE | 2019-10-10 19:50 | NUR ---
NURSE NOTES: Received report & pt from AMBROSIO Gamez. Pt up in chair, a&ox4, in room air. No s/s of acute distress & no c/o pain at this time. PICC site intact & S/L'd. Next RN supervised self-intubation @ 2100 & pt aware. Plan of care discussed.
[2019-10-10 20:00] VITALS: BP 110/77
[2019-10-10] MEDS: Dyna-Hex 2% Top Sol 2oz TOPIC SCH (20:54)
--- NOTE | 2019-10-11 01:00 | NUR ---
NURSE NOTES: PICC line removed as ordered by . Cath tip intact, pressure applied, told pt to lie flat for at least x 30mins.
[2019-10-11] MEDS ORDERED: NS Irrig 1000ml ONE (03:54)
--- NOTE | 2019-10-11 03:55 | NUR ---
DISCHARGE NOTES: Discharged pt to home as ordered by . D/C paper signed & instruction given to pt. All questions answered. Belongings list rechecked & signed. Pt denies pain. A&ox4, no nausea or vomiting. Refused to be wheeled via wheelchair. Pt accompanied by friend & staff to private vehicle.
--- NOTE | 2019-10-11 11:41 | NUR ---
*-* INSURANCE *-* UPDATED CLINICALS AND REVIEWS HAVE BEEN FAXED TO: [facility] NCM:ALONSO FERNANDEZ REF# [id number] [: [phone] F: [phone] Addendum: 10/11/19 at 1143 by CINTIA SHELL CM DISCHARGE INSTRUCTION FAXED NO DISCHARGE SUMMARY IN SYSTEM YET
--- NOTE | 2019-10-12 11:19 | NUR ---
*-* NO INSURANCE INFORMATION IN THE BAR UNABLE TO SEND CLINICALS AND REVIEWS *-* Addendum: 10/12/19 at 1123 by CINTIA SHELL CM DISCHARGE SUMMARY NOT IN SYSTEM UNABLE TO FAX
--- NOTE | 2019-10-12 15:56 | Discharge Summary ---
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 Procedures s/p 10/[address] Sheridan Mcdowell continent ileostomy and pouch endoscopy s/p 10/06/[address] Swartz Revision of Mcdowell continent ileostomy stoma in depth Hospital Course patient was kept n.p.o. patient started on the IV fluids patient undergone Mcdowell pouch endoscopy on 10/03 28 Bangl[place] Chamorro catheter was inserted into the pouch, connected to gravity drainage and covered with a dressing over the stoma patient tolerated endoscopy well endoscopy revealed redundant and angulated access segment patient started on bowel preparation and clear liquid diet patient undergone PICC line placement on 10/05 patient undergone revision of Mcdowell pouch stoma postoperatively indwelling pouch catheter was maintained to continuous drainage IV antibiotic continued pain management was addressed as needed. patient started on BCIR diet intake and output and labs were closely monitored IV antibiotic continued patient started on RN supervised BCIR self intubation patient was able to self intubate using 30 Bangladeshi Medena catheter full instruction/supplies/limitation discussed/provided patient to follow-up in the office on 10/16 patient was stable for discharge FINAL DIAGNOSES 1. 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 2. History of ulcerative colitis. 3. STATUS POST MULTIPLE ABDOMINAL OPERATIONS: 3.1. Laparoscopic-assisted proctocolectomy with ileoanal J-pouch in October 2001. 3.2. section 2007, 2012 and 2015. 3.3. Abdomino-perineal proctectomy and resection of failed ileoanal J-pouch with creation of Mcdowell continent ileostomy September 2018 (right all of these operations were done in other states). 4. s/p Revision of Mcdowell continent ileostomy stoma in depth 10/06/19 Discharge Medications Continued Medications: Cholecalciferol (Vitamin D3) (Vitamin D3) 2,400 Unit/1 Ml Liquid 1000 UNIT PO DAILY for SUPPLEMENT (This prescription has been renewed) Ferrous Sulfate* (Ferrous Sulfate*) 325 Mg Tablet 325 MG ORAL DAILY for SUPPLEMENT , TAB 0 Refills (This prescription has been renewed) Hyoscyamine Sulfate (Levsin) 0.125 Mg Tablet 0.125 MG ORAL Q6HR PRN for Abdominal cramps, TAB Lactobacillus Combo No.11 (Probiotic) 1 Each Cap.sprink 1 CAP PO DAILY for SUPPLEMENT , CAP (This prescription has been renewed) Multivitamins* (Multivitamins*) 1 Each Tablet 1 TAB ORAL DAILY for SUPPLEMENT , TAB 0 Refills (This prescription has been renewed) Pantoprazole* (Protonix*) 40 Mg Tablet.dr 40 MG ORAL DAILY for GERD, TAB (This prescription has been renewed) Discharge Condition Upon Discharge: stable Discharge Vital Signs Last Vital Signs Date Time Temp Pulse Resp B/P (MAP) Pulse Ox O2 Delivery O2 Flow Rate FiO2 10/10/19 20:44 Room Air 10/10/19 20:00 96.9 61 18 110/77 (88) 100 10/06/19 16:30 3 Discharge Disposition Patient was discharged home Discharge Instructions Discharge Instructions Special Instructions I have been assigned to complete a D/C Summary on this account. I was not involved in the patient management Betty Dhillon [employer] October 12, 2019 15:56
== END 2019-10-11 03:55 | disposition home or self-care (01) | DRG 349 ==
LOC: EMR 14:21 → 3E 14:30 → EDBEDREQ 15:06
PROC: 02HV33Z Insertion of Infusion Device into Superior Vena Cava, Percutaneous Approach (ICD-10-PCS; principal; 2019-10-04 11:58)
PROC: 0DJD8ZZ Inspection of Lower Intestinal Tract, Via Natural or Artificial Opening Endoscopic (ICD-10-PCS; principal; 2019-10-04 11:58)
PROC: 0WQFXZ2 Repair Abdominal Wall, Stoma, External Approach (ICD-10-PCS; 2019-10-06)
DX: K94.13 Enterostomy malfunction (principal); Y83.3 Surgical operation with formation of external stoma as the cause of abnormal reaction of the patient, or of later complication, without mention of misadventure at the time of the procedure; Z87.19 Personal history of other diseases of the digestive system
CPT/HCPCS: 36415; 36569; 76937; 80048; 80053; 81003; 81025; 82607; 82728; 82746; 83540; 83550; 83690; 85025; 87324; 94003; 94150; 99285; J2250; J2405; J2765; J7030